=== PATIENT | male | born 1955 | race Caucasian/White ===

== ENCOUNTER 2019-07-17 06:22 | Emergency (ER) | payer OTHER ==
[2019-07-17] MEDS ORDERED: METHYLPREDNISOLONE 125 MG INJ ONE (08:05)
[2019-07-17] MEDS ORDERED: DIAZEPAM 10 MG/2 ML INJ SYRINGE ONE ×2 (08:06→08:16)
[2019-07-17] MEDS ORDERED: KETOROLAC 30 MG/ML INJ ONE (08:06)
[2019-07-17 09:35] VITALS: BP 134/83; O2SAT 96
--- NOTE | 2019-07-18 18:45 | ER ---
Nurse's Notes [facility] Name: Remigio Barr Age: 63 yrs Sex: Male : 1955 Arrival Date: 07/17/2019 Time: 06:25 Bed 18 Private MD: Diagnosis: Muscle spasm;Muscle spasm of back Presentation: 07/16 06:26 Chief complaint: Patient states: Neck, back and shoulder pain, denies any injury trauma sg or falls at this time. Coronavirus screen: Proceed with normal triage. Ebola Screen: Patient negative for fever greater than or equal to 101.5 degrees Fahrenheit, and additional compatible Ebola Virus Disease symptoms Patient denies exposure to infectious person. Patient denies travel to an Ebola-affected area in the 21 days before illness onset. No symptoms or risks identified at this time. Acute neurological deficit: none identified. Initial Sepsis Screen: Does the patient meet any 2 criteria? No. Patient's initial sepsis screen is negative. Does the patient have a suspected source of infection? No. Patient's initial sepsis screen is negative. Risk Assessment: Do you want to hurt yourself or someone else? Patient reports no desire to harm self or others. Onset of symptoms was July 17, 2019. Care prior to arrival: None. 06:26 Method Of Arrival: Ambulatory sg 06:26 Acuity: JEANNIE 4 sg - Immunization history:: Adult Immunizations up to date. - Social history:: Smoking status: unknown. Screenin:10 Abuse screen: Denies threats or abuse. Nutritional screening: No deficits noted. rb1 Tuberculosis screening: No symptoms or risk factors identified. Fall Risk None identified. Assessment: 08:10 General: Appears uncomfortable, Behavior is calm, cooperative. Pain: Complains of pain rb1 in neck and shoulder Pain currently is 8 out of 10 on a pain scale. Neuro: Level of Consciousness is awake, alert, obeys commands, Oriented to person, place, time, situation. Cardiovascular: Capillary refill < 3 seconds. Respiratory: Airway is patent Respiratory effort is even, unlabored, Respiratory pattern is regular, symmetrical. GI: No signs and/or symptoms were reported involving the gastrointestinal system. : No signs and/or symptoms were reported regarding the genitourinary system. Derm: Skin is pink, warm \T\ dry. 09:10 Reassessment: Patient appears in no apparent distress at this time. Patient and/or rb1 family updated on plan of care and expected duration. Pain level reassessed. Patient is alert, oriented x 3, equal unlabored respirations, skin warm/dry/pink. Vital Signs: 06:26 BP 148 / 70; Pulse 77; Resp 17; Pulse Ox 100% on R/A; sg 09:15 BP 134 / 83; Pulse 73; Resp 17; Pulse Ox 96% on R/A; rb1 ED Course: 06:25 Patient arrived in ED. ds1 06:27 Triage completed. sg 06:27 Arm band placed on. sg 07:22 Ace Toledo MD is Attending Physician. kdr 07:33 Mei Plunkett RN is Primary Nurse. iw 07:58 Patient has correct armband on for positive identification. Bed in low position. Call mh5 light in reach. Side rails up X 1. Pulse ox on. NIBP on. 07:58 Inserted saline lock: 20 gauge in right antecubital area, using aseptic technique. mh5 Blood collected. 09:15 No provider procedures requiring assistance completed. IV discontinued, intact, rb1 bleeding controlled, No redness/swelling at site. Pressure dressing applied. Administered Medications: 08:05 Drug: Valium 2 mg Route: IVP; Site: right antecubital; rb1 08:20 Follow up: Response: No adverse reaction rb1 08:10 Drug: SOLU-Medrol 125 mg Route: IVP; Site: right antecubital; rb1 08:20 Follow up: Response: No adverse reaction rb1 08:10 Drug: TORadol - Ketorolac 15 mg Route: IVP; Site: right antecubital; rb1 08:20 Follow up: Response: No adverse reaction rb1 08:15 Drug: Robaxin 1 grams Route: IVPB; Infused Over: 1 hrs; Site: right antecubital; rb1 09:19 Follow up: Response: No adverse reaction; IV Status: Completed infusion rb1 Outcome: 09:05 Discharge ordered by . kdr 09:15 Discharged to home ambulatory. rb1 09:15 Condition: stable 09:15 Discharge instructions given to patient, Instructed on discharge instructions, follow up and referral plans. medication usage, Demonstrated understanding of instructions, follow-up care, medications, Prescriptions given X 3. 09:29 Patient left the ED. rb1 Signatures: Eric Parra RN Ace Campbell MD MD [facility] [place], Umm ds1 Mei Plunkett RN RN iw Avani Kuhn RN RN rb1 Rochelle Elder [facility]
--- NOTE | 2019-07-18 18:45 | EDPHYS ---
Physician Documentation [facility] Name: Remigio Barr Age: 63 yrs Sex: Male : 1955 Arrival Date: 07/17/2019 Time: 06:25 Bed 18 Private MD: ED Physician Ace Toledo HPI: 07/16 07:45 This 63 yrs old Male presents to ER via Ambulatory with complaints of Neck kdr Pain, >24Hrs Old, Shoulder Pain. 07:46 Since Thursday, the patient has been having upper back and neck pain. He was moving a [employer] but o/w had no injury or known trauma. He has had this problem before but can't remember when the last time was nor any particular diagnosis given beyond musculoskeletal pain. Onset: The symptoms/episode began/occurred suddenly, Thursday. Severity of symptoms: At their worst the symptoms were moderate severe incapacitating in the emergency department the symptoms are unchanged. The patient has not experienced similar symptoms in the past. The patient has not recently seen a physician. - Immunization history:: Adult Immunizations up to date. - Social history:: Smoking status: unknown. ROS: 07:46 Constitutional: Negative for fever, chills, and weight loss, Eyes: Negative for injury, kdr pain, redness, and discharge, Neck: Negative for injury, pain, and swelling, Cardiovascular: Negative for chest pain, palpitations, and edema, Respiratory: Negative for shortness of breath, cough, wheezing, and pleuritic chest pain, Abdomen/GI: Negative for abdominal pain, nausea, vomiting, diarrhea, and constipation, Back: Negative for injury and pain, : Negative for injury, bleeding, discharge, and swelling, Skin: Negative for injury, rash, and discoloration, Neuro: Negative for headache, weakness, numbness, tingling, and seizure activity. Psych: Negative for depression, anxiety, suicide ideation, homicidal ideation, and hallucinations, Allergy/Immunology: Negative for hives, rash, and allergies, Endocrine: Negative for neck swelling, polydipsia, polyuria, polyphagia, and marked weight changes, Hematologic/Lymphatic: Negative for swollen nodes, abnormal bleeding, and unusual bruising. 07:46 MS/extremity: Positive for decreased range of motion, pain, Negative for injury or acute deformity. Exam: 07:46 Constitutional: This is a well developed, well nourished patient who is awake, alert, kdr and in no acute distress. Head/Face: Normocephalic, atraumatic. Eyes: Pupils equal round and reactive to light, extra-ocular motions intact. Lids and lashes normal. Conjunctiva and sclera are non-icteric and not injected. Cornea within normal limits. Periorbital areas with no swelling, redness, or edema. Chest/axilla: Normal chest wall appearance and motion. Nontender with no deformity. No lesions are appreciated. Cardiovascular: Regular rate and rhythm with a normal S1 and S2. No gallops, murmurs, or rubs. Normal PMI, no JVD. No pulse deficits. Respiratory: Lungs have equal breath sounds bilaterally, clear to auscultation and percussion. No rales, rhonchi or wheezes noted. No increased work of breathing, no retractions or nasal flaring. Abdomen/GI: Soft, non-tender, with normal bowel sounds. No distension or tympany. No guarding or rebound. No evidence of tenderness throughout. Skin: Warm, dry with normal turgor. Normal color with no rashes, no lesions, and no evidence of cellulitis. MS/ Extremity: Pulses equal, no cyanosis. Neurovascular intact. Full, normal range of motion. Neuro: Awake and alert, GCS 15, oriented to person, place, time, and situation. Cranial nerves II-XII grossly intact. Motor strength 5/5 in all extremities. Sensory grossly intact. Cerebellar exam normal. Normal gait. Psych: Awake, alert, with orientation to person, place and time. Behavior, mood, and affect are within normal limits. 07:46 Neck: External neck: tenderness, that is mild, of the left trapezius, right trapezius, right posterior aspect of neck and left posterior aspect of neck. 08:01 Back: pain, that is moderate, of the left trapezius, right trapezius, left scapular kdr area and right scapular area, ROM is painful, with all movement, muscle spasm, is appreciated in the left trapezius, right trapezius, left scapular area and right scapular area. Vital Signs: 06:26 BP 148 / 70; Pulse 77; Resp 17; Pulse Ox 100% on R/A; sg 09:15 BP 134 / 83; Pulse 73; Resp 17; Pulse Ox 96% on R/A; rb1 MDM: 07:46 Data reviewed: vital signs, nurses notes, lab test result(s), radiologic studies. kdr 09:05 Patient medically screened. kdr Administered Medications: 08:05 Drug: Valium 2 mg Route: IVP; Site: right antecubital; rb1 08:20 Follow up: Response: No adverse reaction rb1 08:10 Drug: SOLU-Medrol 125 mg Route: IVP; Site: right antecubital; rb1 08:20 Follow up: Response: No adverse reaction rb1 08:10 Drug: TORadol - Ketorolac 15 mg Route: IVP; Site: right antecubital; rb1 08:20 Follow up: Response: No adverse reaction rb1 08:15 Drug: Robaxin 1 grams Route: IVPB; Infused Over: 1 hrs; Site: right antecubital; rb1 09:19 Follow up: Response: No adverse reaction; IV Status: Completed infusion rb1 Disposition: 07/17/19 09:05 Discharged to Home. Impression: Muscle spasm, Muscle spasm of back. - Condition is Stable. - Discharge Instructions: Back Injury Prevention, [id number], Muscle Cramps and Spasms, [id number], Back Exercises, [id number]. - Prescriptions for Robaxin 500 mg Oral Tablet - take 2 tablet by ORAL route every 6 hours As needed; 40 tablet. Medrol (Darnell) 4 mg Oral Tablets, Dose Pack - take 1 tablet by ORAL route as directed - follow package instructions; 1 packet. Ibuprofen 600 mg Oral Tablet - take 1 tablet by ORAL route every 6 hours As needed take with food; 30 tablet. - Medication Reconciliation Form, Thank You Letter, Antibiotic Education, Prescription Opioid Use form. - Follow up: Private Physician; When: 2 - 3 days; Reason: If symptoms return, Further diagnostic work-up, Recheck today's complaints, Continuance of care, Re-evaluation by your physician. - Problem is new. - Symptoms have improved. Signatures: Ace Toledo MD MD kdr Mei Plunkett RN RN iw Avani Kuhn, EDGARD RN rb1 Corrections: (The following items were deleted from the chart) 09:29 09:05 07/17/2019 09:05 Discharged to Home. Impression: Muscle spasm; Muscle spasm of rb1 back. Condition is Stable. Forms are Medication Reconciliation Form, Thank You Letter, Antibiotic Education, Prescription Opioid Use. Follow up: Private Physician; When: 2 - 3 days; Reason: If symptoms return, Further diagnostic work-up, Recheck today's complaints, Continuance of care, Re-evaluation by your physician. Problem is new. Symptoms have improved. kdr
== END 2019-07-17 09:29 | disposition home or self-care (01) ==
LOC: ER 06:22
DX: M62.830 Muscle spasm of back (principal); M62.838 Other muscle spasm
CPT/HCPCS: 96365; 96375; 99284; J3360; J2930; J2800